=== PATIENT | male | born 1975 | race Caucasian/White ===

== ENCOUNTER 2016-04-11 10:05 | Inpatient (IN) | payer OTHER, MEDICARE ==
[2016-04-11] VITALS (11 sets, daily range): BP systolic 116–157; BP diastolic 69–86; PULSE 62–90; RESP 18–20; TEMP 97.8; O2SAT 98–100
[~2016-04-11] VITALS: Ht 188 cm; Wt 84.8 kg
[~2016-04-11 10:05] MED LIST: ASPI325T PO; LITH1TAB3 PO; OMEP20TA PO; PROC10TA PO; QUET1TAB66 PO
--- NOTE | 2016-04-11 10:37 | PD ---
HPI Chief Complaint: altered mental status Time Seen by Provider: 10:31 Travel History International Travel<30 days: No Contact w/Intl Traveler<30days: No History of Present Illness HPI This is a 40-year-old male with a history of bipolar disorder who is brought in under a Mann act having been found by police stumbling around, looking in leaves for his things, hallucinating and not providing much meaningful history. To them he denied using any substances. To me he says he needs to stop taking Ativan and Depakote. He says it's 1997 and Fernie is the president. He doesn't know where he is. PFSH Past Medical History Bipolar Disorder: Yes Depression: Yes Diabetes: No Diminished Hearing: No Past Surgical History Tonsillectomy: Yes Social History Alcohol Use: Yes Tobacco Use: Yes (2 PPD) Substance Use: Yes Allergies-Medications (Allergen,Severity, Reaction): Coded Allergies: Seroquel (Unverified Allergy, Severe, anaphalaxis, 08/30/13) Reported Meds & Prescriptions Reported Meds & Active Scripts Active Reported Seroquel (Quetiapine Fumarate) 300 Mg Tab 300 Mg PO HS Prochlorperazine Maleate 10 Mg Tab 10 Mg PO NEEDED Omeprazole 20 Mg Tab 20 Mg PO BID Lithobid ([place] Carbonate) 300 Mg Tab 600 Mg PO HS Lithobid ([place] Carbonate) 300 Mg Tab 300 Mg PO DAILY Aspirin 325 Mg Tab 325 Mg PO DAILY Review of Systems ROS Limitations: Altered Mental Status Physical Exam Narrative GENERAL:Well appearing, no acute distress SKIN: Warm and dry. HEAD: Atraumatic. Normocephalic. EYES: Pupils dilated equal and reactive. No injection or drainage. ENT: Moist mucous membranes NECK: Trachea midline. CARDIOVASCULAR: Regular rate and rhythm. No murmur appreciated. RESPIRATORY: Sonorous respirations with some tachypnea, clear breath sounds bilaterally. GASTROINTESTINAL: Abdomen soft, non-tender, nondistended. MUSCULOSKELETAL: No obvious deformities. NEUROLOGICAL: Oriented to person. No obvious cranial nerve deficits. Moving all extremities. PSYCHIATRIC: Poor insight and judgment. Data Data Last Documented VS Vital Signs Date Time Temp Pulse Resp B/P Pulse Ox O2 Delivery O2 Flow Rate FiO2 04/11/16 12:12 83 20 116/72 98 Room Air 04/11/16 10:15 97.8 Orders Ammonia (04/11/16 10:34) Complete Blood Count With Diff (04/11/16 10:34) Comprehensive Metabolic Panel (04/11/16 10:34) Drug Screen, Random Urine (04/11/16 10:34) Salicylates (Aspirin) (04/11/16 10:34) Tylenol (Acetaminophen) (04/11/16 10:34) Urinalysis - C+S If Indicated (04/11/16 10:34) Blood Glucose (04/11/16 10:34) Ecg Monitoring (04/11/16 10:34) Iv Access Insert/Monitor (04/11/16 10:34) Oximetry (04/11/16 10:34) Sodium Chloride 0.9% Flush (Ns Flush) (04/11/16 10:45) Alcohol (Ethanol) (04/11/16 10:34) Chest, Single Ap (04/11/16 ) Arterial Blood Gas (Abg) (04/11/16 ) Sodium Bicarbonate 8.4% Inj (Sodium Bica (04/11/16 12:45) Dextrose 5% In [place]... W/Sodium Bicarbon (04/11/16 12:45) Acetylcysteine Inj (Acetadote Inj) (04/11/16 13:00) Acetylcysteine Inj (Acetadote Inj) (04/11/16 13:00) Acetylcysteine Inj (Acetadote Inj) (04/11/16 13:00) Admit Order (Ed Use Only) (04/11/16 13:02) Labs Laboratory Tests Test 04/11/16 04/11/16 04/11/16 11:41 12:09 12:57 White Blood Count 11.6 TH/MM3 Red Blood Count 4.87 MIL/MM3 Hemoglobin 15.9 GM/DL Hematocrit 46.5 % Mean Corpuscular Volume 95.5 FL Mean Corpuscular Hemoglobin 32.6 PG Mean Corpuscular Hemoglobin 34.2 % Concent Red Cell Distribution Width 15.4 % Platelet Count 266 TH/MM3 Mean Platelet Volume 7.4 FL Neutrophils (%) (Auto) 72.1 % Lymphocytes (%) (Auto) 20.6 % Monocytes (%) (Auto) 6.7 % Eosinophils (%) (Auto) 0.1 % Basophils (%) (Auto) 0.5 % Neutrophils # (Auto) 8.4 TH/MM3 Lymphocytes # (Auto) 2.4 TH/MM3 Monocytes # (Auto) 0.8 TH/MM3 Eosinophils # (Auto) 0.0 TH/MM3 Basophils # (Auto) 0.1 TH/MM3 CBC Comment DIFF FINAL Differential Comment Sodium Level 145 MEQ/L Potassium Level 4.0 MEQ/L Chloride Level 122 MEQ/L Carbon Dioxide Level 15.3 MEQ/L Anion Gap 8 MEQ/L Blood Urea Nitrogen 29 MG/DL Creatinine 1.73 MG/DL Estimat Glomerular Filtration 44 ML/MIN Rate Random Glucose 89 MG/DL Calcium Level 8.5 MG/DL Total Bilirubin 0.4 MG/DL Aspartate Amino Transf 188 U/L (AST/SGOT) Alanine Aminotransferase 200 U/L (ALT/SGPT) Alkaline Phosphatase 88 U/L Ammonia 15 MCMOL/L Total Protein 7.4 GM/DL Albumin 4.1 GM/DL Salicylates Level 60.8 MG/DL Acetaminophen Level LESS THAN 2.0 MCG/ML Ethyl Alcohol Level LESS THAN 3 MG/DL Urine Color YELLOW Urine Turbidity CLEAR Urine pH 5.0 Urine Specific [place] 1.020 Urine Protein TRACE mg/dL Urine Glucose (UA) NEG mg/dL Urine Ketones 10 mg/dL Urine Occult Blood MOD Urine Nitrite NEG Urine Bilirubin NEG Urine Urobilinogen LESS THAN 2.0 MG/DL Urine Leukocyte Esterase NEG Urine RBC 10 /hpf Urine WBC 1 /hpf Urine Amorphous Sediment RARE Urine Hyaline Casts 26 /lpf Urine Mucus FEW /lpf Microscopic Urinalysis Comment CATH-CULT NOT IND Urine Opiates Screen NEG Urine Barbiturates Screen NEG Urine Amphetamines Screen NEG Urine Benzodiazepines Screen NEG Urine Cocaine Screen NEG Urine Cannabinoids Screen NEG Blood Gas Puncture Site RT RADIAL Blood Gas Patient Temperature 98.6 Blood Gas HCO3 8 mmol/L Blood Gas Base Excess -16.1 mmol/L Blood Gas Oxygen Saturation 95 % Arterial Blood pH 7.43 Arterial Blood Partial 12 mmHg Pressure CO2 Arterial Blood Partial 123 mmHG Pressure O2 Arterial Blood Oxygen Content 21.7 Vol % Arterial Blood 1.1 % Carboxyhemoglobin Arterial Blood Methemoglobin 2.1 % Blood Gas Hemoglobin 16.1 G/DL Oxygen Delivery Device ROOM AIR Blood Gas Inspired Oxygen 21 % MDM Medical Decision Making Medical Screen Exam Complete: Yes Emergency Medical Condition: Yes Interpretation(s) Afebrile, no tachycardia, hypertensive Mild leukocytosis Bicarbonate is 15 Creatinine is 1.7 Mild transaminitis Salicylate 60 Drug screen is negative Acetaminophen is negative Alcohol is negative ABG: Respiratory alkalosis and metabolic acidosis Differential Diagnosis Alcohol intoxication, substance intoxication, intracranial hemorrhage, drug overdose Narrative Course This is a 40-year-old male who presents to the emergency department with altered mental status under a Mann act for bizarre behavior. He does have a history of bipolar disorder. He was placed on a monitor and an IV was established. He was observed to be tachypneic and somewhat short of breath. Labs were obtained which demonstrate a salicylate level of 60 consistent with salicylate toxicity. Additionally he was found to have a metabolic acidosis with a concurrent respiratory alkalosis. Creatinine is 1.7. PH was normal. CT of the head is negative for intracranial process. I spoke to poison control. Patient was started on sodium bicarbonate. He will be admitted to the intensive care unit for further evaluation. I don't think he requires dialysis at this time but certainly if his symptoms worsen he may require dialysis. Poison control also recommended that we initiate N-acetylcysteine given the patient's transaminitis. I ordered this and we will follow a repeat Tylenol level in 4 hours. Critical Care Narrative Aggregate critical care time was 60 minutes. Time to perform other separately billable procedures was not included in the critical care time. My time did not include minutes spent treating any other patients simultaneously or on activities that did not directly contribute to the patient's treatment. The services I provided to this patient were to treat and/or prevent clinically significant deterioration that could result in: Disability, I provided critical care services requiring my management, as noted below: Chart data review, documentation time, medication orders and management, vital sign assessments/reviewing monitor data, ordering and reviewing lab tests, ordering and interpreting/reviewing x-rays and diagnostic studies, care of the patient and discussion of the patient with the admitting physicians. Physician Communication Physician Communication Discussed with Dr. Catalan Diagnosis Primary Impression: Salicylate poisoning Qualified Code: T39.094A - Salicylate poisoning, undetermined intent, initial encounter Admitting Information Admitting Physician Requests: it Jackeline Leon MD Apr 11, 2016 10:37
--- NOTE | 2016-04-11 11:13 | RADRPT ---
EXAM DATE/TIME: 04/11/2016 10:44 [facility] COMPARISON: No previous studies available for comparison. INDICATIONS : Short of breath MEDICAL HISTORY : None. SURGICAL HISTORY : None. ENCOUNTER: Initial ACUITY: 1 day PAIN SCORE: Non-responsive. LOCATION: Bilateral chest FINDINGS: AP views of the chest demonstrate a normal-sized cardiac silhouette. There are multiple EKG lines ove rlying the patient. No effusion, consolidation, or pneumothorax is identified. Bones and soft tissues demonstrate no acute finding. CONCLUSION: No acute cardiopulmonary abnormality is identified. Rocky Davis MD on April 11, 2016 at 11:10 Board Certified Radiologist. This report was verified electronically.
[2016-04-11 11:58] LABS: AUTOMATED NEUTROPHIL # 8.4 TH/MM3 (1.8-7.7); BASOPHIL # 0.1 TH/MM3 (0-0.2); BASOPHIL % 0.5 % (0.0-2.0); EOSINOPHIL % 0.1 % (0.0-4.0); HEMATOCRIT 46.5 % (39.0-51.0); HEMO FLAGS DIFF FINAL; LYMPH % 20.6 % (9.0-44.0); LYMPHOCYTE # 2.4 TH/MM3 (1.0-4.8); MEAN CELL VOLUME 95.5 FL (80.0-100.0); MEAN CORPUSCULAR HEMOGLOBIN 32.6 PG (27.0-34.0); MEAN CORPUSCULAR HGB CONC 34.2 % (32.0-36.0); MONO % 6.7 % (0.0-8.0); NEUT % 72.1 % (16.0-70.0); PLATELET COUNT 266 TH/MM3 (150-450); RED BLOOD COUNT 4.87 MIL/MM3 (4.50-5.90); RED CELL DISTRIBUTION WIDTH 15.4 % (11.6-17.2); WHITE BLOOD COUNT 11.6 TH/MM3 (4.0-11.0)
[2016-04-11 12:24] LABS: ANION GAP 8 MEQ/L (5-15)
[2016-04-11 12:27] LABS: ALKALINE PHOSPHATASE 88 U/L (45-117); ALT (GPT) 200 U/L (12-78); AST (GOT) 188 U/L (15-37); BICARBONATE 15.3 MEQ/L (21.0-32.0); BLOOD UREA NITROGEN 29 MG/DL (7-18); CHLORIDE 122 MEQ/L (98-107); GLOMERULAR FILTRATION RATE 44 ML/MIN (>89); SODIUM (NA) 145 MEQ/L (136-145); TOTAL BILIRUBIN ADULT 0.4 MG/DL (0.2-1.0)
[2016-04-11 12:28] LABS: ACETAMINOPHEN LESS THAN 2.0 MCG/ML (10.0-30.0)
[2016-04-11 12:38] LABS: BLOOD, URINE MOD (NEG); GLUCOSE,URINE NEG (NEG); HYALINE CAST, URINE 26 /lpf (RARE); KETONE, URINE 10 mg/dL (NEG); MUCUS URINE FEW /lpf (OCC); NITRITE,URINE NEG (NEG); URINE COLOR YELLOW (YELLW/STRAW)
[2016-04-11 12:40] LABS: AMPHETAMINE, URINE NEG (NEG); BARBITURATES, URINE NEG (NEG); COCAINE, URINE NEG (NEG)
[2016-04-11 12:41] LABS: COMMENT (UR) CATH-CULT NOT IND; CULTURE IF INDICATED CATH CULTURE NOT IND
[2016-04-11] MEDS ORDERED: SODIUM BICARBONATE 8.4% INJ 100 MEQ in DEXTROSE 5% IN WATE 1000ML INJ 1,000 ML IV SCH ×2 (12:45)
[2016-04-11] MEDS ORDERED: SODIUM BICARBONATE 8.4% INJ 50 MEQ/50 ML SYR IV PUSH ONE (12:45)
[2016-04-11] MEDS ORDERED: ACETYLCYSTEINE IV ONE ×6 (13:00)
[2016-04-11] MEDS ORDERED: DEXTROSE 5% IV ONE ×6 (13:00)
[2016-04-11] MEDS ORDERED: WATER IV ONE ×2 (13:00)
[2016-04-11] MEDS ORDERED: WATE IV ONE ×4 (13:00)
[2016-04-11 13:07] LABS: BLOOD GAS BASE EXCESS -16.1 mmol/L (-2-2); BLOOD GAS CARBOXYHEMOGLOBIN 1.1 % (0-4); BLOOD GAS HCO3 8 mmol/L (22-26); BLOOD GAS METHEMOGLOBIN 2.1 % (0-2); BLOOD GAS O2 HGB SATURATION 95 % (90-100); BLOOD GAS OXYGEN CONTENT 21.7 Vol % (12.0-20.0); BLOOD GAS PCO2 12 mmHg (38-42); BLOOD GAS PO2 123 mmHG (61-120); BLOOD GAS TOTAL HGB 16.1 G/DL (12.0-16.0); CRITICAL VALUE YES; DRAW SITE RT RADIAL; FIO2 21 %; NUMBER OF ARTERIAL PUNCTURES 1; OXYGEN DEVICE ROOM AIR; STAT YES; TEMP CORR TO 98.6; ULNAR PULSE PRESENT
[2016-04-11] MEDS ORDERED: MISCELLANEOUS NURSING INFORMATION XX SCH (13:30)
[2016-04-11] MEDS ORDERED: RESP: ALBUTEROL 2.5 MG/IPRATROPIUM 0.5 MG NEB (PRN) INH (13:30)
[2016-04-11] MEDS ORDERED: CHLORHEXIDINE GLUCONATE 2 % 1 PACK (2 CLOTHS) TOP PRN (13:30)
[2016-04-11] MEDS ORDERED: SODIUM BICARBONATE 8.4% INJ 50 MEQ/50 ML SYR ONE ×2 (13:37→13:41)
[2016-04-11 13:55] LABS: INTERNATIONAL NORMALIZED RATIO 1.1 RATIO; PROTHROMBIN TIME - PATIENT 12.4 SEC (9.8-11.6)
--- NOTE | 2016-04-11 15:22 | MH ---
cc: AKHIL HART M.D. DATE OF ADMISSION: 04/11/2016 HISTORY OF PRESENT ILLNESS: The patient is a 40-year-old male with past medical history of bipolar disorder on lithium and Seroquel at home. He presented to the [facility] Emergency room under the Mann Act after the police found him stumbling around and looking in leaves for his things. In addition, the patient was confused and hallucinating and not providing any meaningful history. His laboratory data showed acute kidney injury with creatinine level of 1.73 and a potassium of 4.0. His Salicylate level was 60.8 and Tylenol level was less than 2.0. His urine drug screen is negative. Chest x-ray in the emergency department showed no acute cardiopulmonary disease identified. In the emergency department, the patient was given 2 ampules of sodium bicarbonate IV push and is about to be placed on a bicarbonate drip. His ABG showed a pH of 7.43, CO2 12, pAO2 of 123, a bicarb of 8 and saturation of 95% on room air. The rest of his history is limited as the patient is a poor historian. PAST MEDICAL HISTORY: Past medical history significant for: 1. Bipolar disorder. 2. Depression. PAST SURGICAL HISTORY: Previous tonsillectomy SOCIAL HISTORY: The patient has a history of tobacco and alcohol use per records. ALLERGIES: SEROQUEL. REPORTED MEDICATIONS: 1. Omeprazole. 2. [place]. 3. Aspirin. FAMILY HISTORY: Noncontributory. REVIEW OF SYSTEMS: Unobtainable. PHYSICAL EXAMINATION: GENERAL: A 40-year-old male lying in bed in no acute respiratory distress. Able to protect his airway. VITAL SIGNS: Afebrile, pulse of 84, blood pressure 116/69, saturation 100% on three liters oxygen. HEAD, EYES, EARS, NOSE, THROAT: Normocephalic and atraumatic. Pupils equal, round and reactive to light and accommodation. Extraocular muscles intact. Conjunctivae are pink. Nonicteric sclerae. Dry mucous membranes. NECK: The neck is supple. No jugular venous distention, adenopathy or thyromegaly. Trachea in the midline. CARDIOVASCULAR: Regular rate and rhythm. Normal S1 and S2. No murmurs, rubs or gallops noted. PULMONARY: Bilateral equal air entry. No rales or wheezing. ABDOMEN: The abdomen is soft, nontender and no distention. Positive bowel sounds. EXTREMITIES: No cyanosis, clubbing or edema. NEUROLOGIC: Awake, alert and able to protect his airways at the present time. No focal sensory deficit. LABORATORY DATA: WBCs of 11.6, hemoglobin 15.9, hematocrit 46, platelet count of 266,000. Sodium 145, potassium 4, chloride 122, CO2 15, BUN 29, creatinine 1.73, glucose of 89, total bilirubin 0.4, AST 188, ALT 200, alkaline phosphatase 88, ammonia level 15, albumin 4.1. Urine drug screen negative for barbiturates, benzodiazepines, amphetamines. Salicylate level 60.8. Tylenol level less than 2. RADIOGRAPHIC STUDIES: Chest x-ray in the emergency department showed no acute cardiopulmonary disease identified. IMPRESSION: 1. Altered mental status. 2. Aspirin toxicity. 3. Acute kidney injury. 4. Elevated liver function tests. 5. Drug overdose. 6. History of bipolar disorder. RECOMMENDATIONS: 1. Monitor neuro status closely and avoid any sedatives. His urine drug screen negative for benzodiazepines, opiates and amphetamines. 2. Oxygen p.r.n. to maintain sats above 92%. 3. Bronchodilators on a p.r.n. basis. 4. The patient is able to protect his airways at the present time. If there is any changes in clinical status, will proceed with intubation for airway protection if needed. 5. Monitor heart rate and blood pressure closely and maintain MAP greater 65 mmHg. obtain a baseline lactic acid level. 6. Monitor renal function, intakes and outputs and avoid nephrotoxins. Insert a Lind. 7. Patient was given 2 ampules of sodium bicarb IV push and will place on D5W with 3 ampules of bicarb at 200 mL/hour. 10. Serial aspirin level checks q. 4 hours. In addition we will repeat Tylenol level. 11. If there is any worsening in renal function, metabolic acidosis or an increase in the salicylate level, will proceed with dialysis. case was discussed with Dr. Orona from the nephrology service. 12. Continue with a urinary alkalinization as stated above. 13. Keep n.p.o. for now. 14. Monitor liver function tests and will check ultrasound of the liver. 15. Patient was started on Mucomyst for possible Tylenol toxicity. His initial Tylenol level was less than 2.0. Will continue with Mucomyst for now until we repeat level in 4 hours. If on repeat, the level is less than 2, will stop Mucomyst at that time. 16. Monitor CBC for signs of infection, which include fever and WBCs. Chest x-ray in the emergency department showed no acute cardiopulmonary disease identified. 17. Sliding scale insulin if needed for glycemic control. 18. Will check a baseline lithium level and consult psychiatry service given underlying history of bipolar disorder and depression. 19. GI prophylaxis with Protonix 40 milligrams daily and DVT prophylaxis with SCDs for now. Further recommendations will be based on the hospital course. CRITICAL CARE TIME: Sixty (60) minutes excluding procedures. MD YAA Arceo/BRIDGER /2:11 PM /3:07 PM JORGE
--- NOTE | 2016-04-11 15:39 | RADRPT ---
EXAM DATE/TIME: 04/11/2016 15:00 [facility] COMPARISON: No previous studies available for comparison. INDICATIONS : Increased lab values. MEDICAL HISTORY : Hallucinations. Bipolar disorder. Substance and alcohol use. Asthma. SURGICAL HISTORY : Tonsillectomy. ENCOUNTER: Initial ACUITY: 1 day PAIN SCORE: Nonresponsive. LOCATION: Bilateral upper quadrant MEASUREMENTS: LIVER: 18.4 cm length COMMON DUCT: 5 mm RIGHT KIDNEY: 12.1 x 5.2 x 5.9 cm SPLEEN: 12.7 cm length FINDINGS: LIVER: Normal echotexture without focal lesion or ductal dilatation. The liver is upper limits of normal fo r size. COMMON DUCT: No intraluminal mass or stone visualized. GALLBLADDER: Contains no stones, demonstrates no wall thickening or pericholecystic fluid. PANCREAS: The visualized portions are within normal limits. RIGHT KIDNEY: No hydronephrosis, stone or mass. The right kidney appears slightly increased in echogenicity. SPLEEN: No focal lesion. The spleen is upper limits of normal for size. CONCLUSION: Slight increase in echogenicity the right kidney which can be seen with medical renal disease. Rocky Zamarripa MD on April 11, 2016 at 15:35 Board Certified Radiologist. This report was verified electronically.
--- NOTE | 2016-04-11 16:12 | RADRPT ---
EXAM DATE/TIME: 04/11/2016 15:54 [facility] COMPARISON: No previous studies available for comparison. INDICATIONS : Altered mental status. RADIATION DOSE: 40.28 CTDIvol (mGy) MEDICAL HISTORY : None SURGICAL HISTORY : Tonsillectomy. ENCOUNTER: Initial ACUITY: 1 day PAIN SCALE: 0/10 LOCATION: cranial TECHNIQUE: Multiple contiguous axial images were obtained of the head. Using automated exposure control and adj ustment of the mA and/or kV according to patient size, radiation dose was kept as low as reasonably a chievable to obtain optimal diagnostic quality images. FINDINGS: CEREBRUM: The ventricles are normal for age. No evidence of midline shift, mass lesion, hemorrhage or acute in farction. No extra-axial fluid collections are seen. POSTERIOR FOSSA: The cerebellum and brainstem are intact. The 4th ventricle is midline. The cerebellopontine angle i s unremarkable. EXTRACRANIAL: The visualized portion of the orbits is intact. SKULL: The calvaria is intact. No evidence of skull fracture. CONCLUSION: Normal examination. Rocky Zamarripa MD on April 11, 2016 at 16:10 Board Certified Radiologist. This report was verified electronically.
[2016-04-11] MEDS ORDERED: CHLORHEXIDINE GLUCONATE 2 % 1 PACK (2 CLOTHS)(extra cloths) TOP PRN (18:15)
[2016-04-11] MEDS: SODIUM CHLORIDE 0.9% FLUSH 5 ML FLUSH IVF PRN (19:23)
[2016-04-11] MEDS: SODIUM BICARBONATE 8.4% INJ 150 MEQ in DEXTROSE 5% IN WATE 1000ML INJ 1,000 ML IV SCH ×2 (19:23)
[2016-04-11 20:03] LABS: ACETAMINOPHEN LESS THAN 2.0 MCG/ML (10.0-30.0); ALKALINE PHOSPHATASE 73 U/L (45-117); ALT (GPT) 156 U/L (12-78); ANION GAP 11 MEQ/L (5-15); AST (GOT) 133 U/L (15-37); BICARBONATE 17.4 MEQ/L (21.0-32.0); BLOOD UREA NITROGEN 23 MG/DL (7-18); CHLORIDE 120 MEQ/L (98-107); GLOMERULAR FILTRATION RATE 56 ML/MIN (>89); SODIUM (NA) 148 MEQ/L (136-145); TOTAL BILIRUBIN ADULT 0.2 MG/DL (0.2-1.0)
[2016-04-11 20:07] LABS: POTASSIUM 2.9 MEQ/L (3.5-5.1)
[2016-04-11] MEDS ORDERED: POTASSIUM CHLORIDE 20 MEQ CONTROLLED RELEASE TAB PO SCH (21:30)
[2016-04-11] MEDS: POTASSIUM CHLOR 20 MEQ PREMIX 100 ML IV SCH (22:00)
[2016-04-12] VITALS (8 sets, daily range): BP systolic 113; BP diastolic 71; PULSE 55–70; RESP 14; TEMP 98.4; O2SAT 99–100
[2016-04-12] MEDS: SODIUM BICARBONATE 8.4% INJ 150 MEQ in DEXTROSE 5% IN WATE 1000ML INJ 1,000 ML IV SCH ×2 (00:12)
[2016-04-12] MEDS: POTASSIUM CHLOR 20 MEQ PREMIX 100 ML IV SCH ×3 (00:12→05:14)
[2016-04-12] MEDS ORDERED: CHLORHEXIDINE GLUCONATE 2 % 1 PACK (2 CLOTHS) TOP SCH (04:00)
[2016-04-12] MEDS ORDERED: CHLORHEXIDINE GLUCONATE 2 % 1 PACK (2 CLOTHS)(taper/protocol) TOP SCH (04:00)
--- NOTE | 2016-04-12 06:39 | MB ---
cc: MABLE MCKEON MD DATE OF CONSULTATION 04/11/2016 REASON FOR CONSULTATION Acute renal failure with salicylate toxicity. HISTORY OF PRESENT ILLNESS This is a 40-year-old male who was admitted today under a Mann Act with a history of bipolar disorder on lithium. The patient was Mann Acted after he was found stumbling around and looking for leaves outside. The patient was apparently confused and hallucinating. He was admitted here. He was found to have acute kidney injury with a creatinine level of 1.7. His previous creatinine was 1.1 in 2010. He was also found to have aspirin level of 60.8 and it was suspected that he had salicylate toxicity secondary to aspirin overdose. His urine drug screen was otherwise negative. His chest x-ray was negative otherwise and his electrolytes revealed signs of acidosis with a serum bicarbonate level of 15. A blood gas revealed a pH of 7.43. The patient was admitted and Toxicology was notified through the emergency room and they had suggested a bicarbonate drip. There is a question if dialysis would be of any benefit for this patient and Nephrology was consulted. At this point the patient is resting in bed. He is somewhat confused; however, has no apparent signs of distress at this point. REVIEW OF SYSTEMS Unobtainable. The patient is lethargic. PAST MEDICAL HISTORY Bipolar disorder. Depression. PAST SURGICAL HISTORY Tonsillectomy. SOCIAL HISTORY History of tobacco and alcohol use, unknown drug use. MEDICATIONS AT HOME 1. Omeprazole. 2. [place]. 3. Aspirin. FAMILY HISTORY Noncontributory. REVIEW OF SYSTEMS Unobtainable. PHYSICAL EXAMINATION VITAL SIGNS: At time of evaluation, temperature 97.8, pulse 78, blood pressure 123/81, pulse ox 99% on 3 liters nasal cannula. GENERAL: The patient lying in bed in no apparent distress, somewhat lethargic. HEENT/NECK: Soft supple. No lymphadenopathy. CARDIAC: Regular rate and rhythm. No murmurs, rubs, gallops. PULMONARY: Lungs clear to auscultation bilaterally. ABDOMEN: Soft, nontender, nondistended. EXTREMITIES: No edema. LABORATORY FINDINGS White count 11.6, hemoglobin 15.9, hematocrit 46.5 with platelet count of 266. Sodium 145, potassium 4.0, chloride 122, bicarb 15.3, BUN 29, creatinine 1.7 with a glucose of 89. Urinalysis with 10 ketones, moderate blood, 10 RBCs, one WBC, 26 hyaline casts. Toxicology with salicylate level of 60.8. ASSESSMENT AND PLAN 1. Salicylate toxicity. The patient presents with a salicylate level of 60.8. He apparently had aspirin overdose. The therapeutic range for treatment with aspirin is usually a range between 10 and 30 and recommendations for dialysis include levels greater than 80-90. At this point the patient has been started on a bicarbonate drip with D5W plus 150 mEq of sodium bicarbonate; this is running at 200 cc/hour. Agree with treatment with bicarbonate infusion to alkalize the patient and further prone excretion of salicylate. There is no absolute indication for hemodialysis at this point. The patient is making urine. He has made approximately 700 cc of urine output since his time in the ER here. Continue with bicarbonate infusion and continue to closely monitor. Also continue to follow salicylate levels. Should levels drift up to levels greater than 80-90, may consider for Vascath placement and dialysis. However, at this point with bicarbonate infusion, should the patient have excretion of salicylate through his urine, continue to closely monitor. 2. Acidosis. The patient presents with acidosis secondary to ingestion of salicylate. He is on bicarbonate infusion, bicarbonate level of 15 at this point. Continue to closely monitor. 3. Bipolar disorder. Continue to monitor at this point. Consider Psychiatry evaluation when stable. 4. Acute kidney injury. The patient has a creatinine here of 1.7. It is unknown what his baseline creatinine is; however, he had a creatinine of 1.14 in 2010. Continue with IV fluids with bicarbonate at this point. If there is no further improvement in renal function, may consider further workup. However, continue to monitor at this point and the patient is making urine at this time. MD PAULO RodriguezP/INGRID /5:32 PM /6:27 AM [id number]
[2016-04-12 07:57] LABS: AUTOMATED NEUTROPHIL # 3.5 TH/MM3 (1.8-7.7); BASOPHIL % 0.5 % (0.0-2.0); EOSINOPHIL # 0.1 TH/MM3 (0-0.4); HEMATOCRIT 40.6 % (39.0-51.0); HEMO FLAGS DIFF FINAL; LYMPH % 38.4 % (9.0-44.0); LYMPHOCYTE # 2.7 TH/MM3 (1.0-4.8); MEAN CELL VOLUME 96.1 FL (80.0-100.0); MEAN CORPUSCULAR HEMOGLOBIN 32.7 PG (27.0-34.0); MONO % 10.3 % (0.0-8.0); NEUT % 49.8 % (16.0-70.0); PLATELET COUNT 185 TH/MM3 (150-450); RED BLOOD COUNT 4.22 MIL/MM3 (4.50-5.90); RED CELL DISTRIBUTION WIDTH 15.4 % (11.6-17.2)
[2016-04-12 08:06] LABS: INTERNATIONAL NORMALIZED RATIO 1.3 RATIO; PROTHROMBIN TIME - PATIENT 14.7 SEC (9.8-11.6)
[2016-04-12 08:39] LABS: ALT (GPT) 129 U/L (12-78); AST (GOT) 117 U/L (15-37); BICARBONATE 19.4 MEQ/L (21.0-32.0); BLOOD UREA NITROGEN 15 MG/DL (7-18); CHLORIDE 118 MEQ/L (98-107); GLOMERULAR FILTRATION RATE 87 ML/MIN (>89); POTASSIUM 3.6 MEQ/L (3.5-5.1); SODIUM (NA) 145 MEQ/L (136-145)
[2016-04-12 08:40] LABS: ANION GAP 8 MEQ/L (5-15)
[2016-04-12 08:42] LABS: ALKALINE PHOSPHATASE 65 U/L (45-117); TOTAL BILIRUBIN ADULT 0.3 MG/DL (0.2-1.0)
[2016-04-12] MEDS: PANTOPRAZOLE SODIUM 40 MG VIAL IV SCH (09:00)
--- NOTE | 2016-04-12 10:17 | HHI.CCPN ---
Subjective Remarks/Hospital Course The patient is a 40-year-old male with past medical history of bipolar disorder on lithium and Seroquel at home. He presented to the [facility] Emergency room under the Mann Act after the police found him stumbling around and looking in leaves for his things. In addition, the patient was confused and hallucinating and not providing any meaningful history. His laboratory data showed acute kidney injury with creatinine level of 1.73 and a potassium of 4.0. His Salicylate level was 60.8 and Tylenol level was less than 2.0. His urine drug screen is negative. Chest x-ray in the emergency department showed no acute cardiopulmonary disease identified. In the emergency department, the patient was given 2 ampules of sodium bicarbonate IV push and is about to be placed on a bicarbonate drip. His ABG showed a pH of 7.43, CO2 12, pAO2 of 123, a bicarb of 8 and saturation of 95% on room air. The rest of his history is limited as the patient is a poor historian. SUBJ 04/12: Pt is alert oriented today, psych consult pending. Salicylate level was 61 yesterday, down to 23 today, remains on bicarb drip. Acute kidney failure has resolved Objective Vital Signs Date Time Temp Pulse Resp B/P Pulse Ox O2 Delivery O2 Flow Rate FiO2 04/12/16 06:00 55 04/11/16 19:32 100 Nasal Cannula 2.00 04/11/16 17:26 18 123/79 04/11/16 10:15 97.8 Intake and Output 04/11/16 04/11/16 04/12/16 08:00 16:00 00:00 Intake Total 3741 ml Output Total 2200 ml Balance 1541 ml Result Diagram: 04/12/16 0741 04/12/16 0735 Other Results Laboratory Tests Test 04/11/16 12:57 Blood Gas Puncture Site RT RADIAL Blood Gas Patient Temperature 98.6 Blood Gas HCO3 8 mmol/L (22-26) Blood Gas Base Excess -16.1 mmol/L (-2-2) Blood Gas Oxygen Saturation 95 % (90-100) Arterial Blood pH 7.43 (7.380-7.420) Arterial Blood Partial 12 mmHg (38-42) Pressure CO2 Arterial Blood Partial 123 mmHG Pressure O2 (61-120) Arterial Blood Oxygen Content 21.7 Vol % (12.0-20.0) Arterial Blood 1.1 % (0-4) Carboxyhemoglobin Arterial Blood Methemoglobin 2.1 % (0-2) Blood Gas Hemoglobin 16.1 G/DL (12.0-16.0) Oxygen Delivery Device ROOM AIR Blood Gas Inspired Oxygen 21 % Objective Remarks PHYSICAL EXAMINATION: GENERAL: A 40-year-old male lying in bed in no acute respiratory distress. HEAD, EYES, EARS, NOSE, THROAT: Normocephalic and atraumatic. NATHALIE Conjunctivae are pink. Nonicteric sclerae. Dry mucous membranes. NECK: The neck is supple.Trachea in the midline. CARDIOVASCULAR: Regular rate and rhythm. Normal S1 and S2. No murmurs, rubs or gallops noted. PULMONARY: Bilateral equal air entry. No rales or wheezing. ABDOMEN: The abdomen is soft, nontender and no distention. Positive bowel sounds. EXTREMITIES: No cyanosis, clubbing or edema. NEUROLOGIC: Awake, alert and able to protect his airways at the present time. No focal deficit. Urinary Catheter: Yes Assessment to: Continue A/P Assessment and Plan IMPRESSION: 1. Altered mental status. 2. Aspirin toxicity. 3. Acute kidney injury. 4. Elevated liver function tests. 5. Drug overdose. 6. History of bipolar disorder. RECOMMENDATIONS: 1. Monitor neuro status closely and avoid any sedatives. His urine drug screen negative for benzodiazepines, opiates and amphetamines. Psych consult pending 2. Oxygen p.r.n. to maintain sats above 92%. 3. Bronchodilators on a p.r.n. basis. 4. The patient is able to protect his airways at the present time. 5. Monitor heart rate and blood pressure closely and maintain MAP greater 65 mmHg. obtain a baseline lactic acid level. 6. Monitor renal function, intakes and outputs and avoid nephrotoxins. Insert a Lind. 7. Patient was given 2 ampules of sodium bicarb IV push and continue D5W with 3 ampules of bicarb at 200 mL/hour. 10. Serial aspirin level checks q. 4 hours. 11. If there is any worsening in renal function, metabolic acidosis or an increase in the salicylate level, will proceed with dialysis. 12. Continue with a urinary alkalinization as stated above. 13. Start regular diet 14. Monitor liver function tests and will check ultrasound of the liver. 15. Patient was started on Mucomyst for possible Tylenol toxicity. His initial Tylenol level was less than 2.0. Will stop Mucomyst. 16. Monitor CBC for signs of infection, which include fever and WBCs. Chest x- ray in the emergency department showed no acute cardiopulmonary disease 17. Sliding scale insulin if needed for glycemic control. 18. Consult psychiatry service given underlying history of bipolar disorder and depression. 19. GI prophylaxis with Protonix 40 milligrams daily and DVT prophylaxis with SCDs for now. David Hidalgo MD Apr 12, 2016 10:17 7. Patient was given 2 ampules of sodium bicarb IV push and will place on D5W with 3 ampules of bicarb at 200 mL/hour. 10. Serial aspirin level checks q. 4 hours. In addition we will repeat Tylenol level. 11. If there is any worsening in renal function, metabolic acidosis or an increase in the salicylate level, will proceed with dialysis. case was discussed with Dr. Orona from the nephrology service. 12. Continue with a urinary alkalinization as stated above. 13. Keep n.p.o. for now. 14. Monitor liver function tests and will check ultrasound of the liver. 15. Patient was started on Mucomyst for possible Tylenol toxicity. His initial Tylenol level was less than 2.0. Will continue with Mucomyst for now until we repeat level in 4 hours. If on repeat, the level is less than 2, will stop Mucomyst at that time. 16. Monitor CBC for signs of infection, which include fever and WBCs. Chest x-ray in the emergency department showed no acute cardiopulmonary disease identified. 17. Sliding scale insulin if needed for glycemic control. 18. Will check a baseline lithium level and consult psychiatry service given underlying history of bipolar disorder and depression. 19. GI prophylaxis with Protonix 40 milligrams daily and DVT prophylaxis with SCDs for now. David Hidalgo MD Apr 12, 2016 10:17
--- NOTE | 2016-04-12 11:21 | HHI.NPPN ---
Subjective History of Present Illness 40 Year old with salicylate overdose Review of Systems General Constitutional: Fatigue Objective Data Data 04/11/16 04/12/16 19:00 07:00 Intake Total 2043 ml 3196 ml Output Total 750 ml 1900 ml Balance 1293 ml 1296 ml Intake Oral 0 ml IV Total 2043 ml 3196 ml Output Urine Total 750 ml 1900 ml # Bowel Movements 0 Vital Signs Date Time Temp Pulse Resp B/P Pulse Ox O2 Delivery O2 Flow Rate FiO2 04/12/16 11:18 100 Nasal Cannula 2.00 04/12/16 06:00 55 04/12/16 04:00 60 04/12/16 02:00 70 04/12/16 00:00 67 04/11/16 22:00 62 04/11/16 20:00 70 04/11/16 19:32 100 Nasal Cannula 2.00 04/11/16 17:26 82 18 123/79 97 04/11/16 17:12 78 123/81 99 Nasal Cannula 3 04/11/16 16:16 77 18 127/81 100 Nasal Cannula 3 04/11/16 15:50 78 18 132/86 98 Nasal Cannula 2 04/11/16 13:20 79 116/69 99 Room Air 04/11/16 12:12 83 20 116/72 98 Room Air -: 04/12/16 0741 04/12/16 0735 Physical Exam General Appearance: Well Developed Neck Neck Exam: Neck Supple Pulmonary Resp Exam: Clear Bilaterally, Breath Sounds Equal Cardiology CV Exam: Regular, Good Perfusion Gastrointestinal/Abdomen GI Exam: Soft, Non-Tender, Bowel Sounds Present Integumentary Skin Exam: Clear Extremeties Extremities Exam: No Edema Assessment/Plan Assessment Summary: MINOO/Acute Renal Failure Problem List: (1) Salicylate poisoning Plan: resolved with conservative approach cr 0.9 Nephrology to sign off Problem Qualifiers (1) Salicylate poisoning: Qualified Code: T39.094D - Salicylate poisoning, undetermined intent, subsequent encounter Nick Trinh MD Apr 12, 2016 11:21
[2016-04-12 11:39] LABS: ACETAMINOPHEN 3.8 MCG/ML (10.0-30.0)
[2016-04-12 11:40] LABS: INDIRECT BILIRUBIN 0.2 MG/DL (0.0-0.8); TOTAL BILIRUBIN ADULT 0.3 MG/DL (0.2-1.0)
[2016-04-12 11:58] LABS: APTT (PATIENT) 33.1 SEC (24.3-30.1); INTERNATIONAL NORMALIZED RATIO 1.3 RATIO; PROTHROMBIN TIME - PATIENT 14.3 SEC (9.8-11.6)
[2016-04-12] MEDS ORDERED: QUEtiapine FUMARATE 100 MG TAB PO SCH (13:30)
--- NOTE | 2016-04-12 13:41 | PD.CONS ---
Provisional Diagnosis Admission Date Apr 11, 2016 at 13:04 [place] I. Bipolar disorder, type I, depressive episode [place] II. Deferred [place] III. Aspirin overdose History of Present Illness Service Psychiatry Consult Requested By Primary Care Physician Unknown HPI The patient is a 40-year-old man, diverse, domiciled alone, [place], 100% service-connected, with psychiatric history of bipolar disorder, multiple psychiatric hospitalizations, previous suicidal attempts, he is receiving outpatient psychiatric care in [place] system, he is on Depakote thousand milligram twice a day and Seroquel 200 mg at bedtime, he doesn't have any significant medical history, who presented to the [facility] Emergency room under the Mann Act after the police found him stumbling around and looking in leaves for his things. As per Er note "In addition, the patient was confused and hallucinating and not providing any meaningful history. His laboratory data showed acute kidney injury with creatinine level of 1.73 and a potassium of 4.0. His Salicylate level was 60.8 and Tylenol level was less than 2.0. His urine drug screen is negative. Chest x-ray in the emergency department showed no acute cardiopulmonary disease identified. In the emergency department , the patient was given 2 ampules of sodium bicarbonate IV push and is about to be placed on a bicarbonate drip. His ABG showed a pH of 7.43, CO2 12, pAO2 of 123, a bicarb of 8 and saturation of 95% on room air". Patient was seen in the ICU today for psychiatric evaluation, no collateral information couldn't be obtained, on psychiatric evaluation patient was found eating, was calm and cooperative, patient explains that he doesn't remember the circumstances around his overdose with aspirin. He says that he knows that he overdosed "but I can' t remember anything, and completely blacked out". He denies the use of alcohol and illicit drug the day of the suicidal attempt, he denies acute stressors or depressive symptoms. He explains that he has been "in a kind of depressed mood in the last weeks"but at the same time he says that he has been stable in his current psychotropic medications and with his psychotherapy. At this moment the patient denies depression, he denies anxiety, he denies suicidal or homicidal ideation, he denies visual and auditory hallucinations, patient is fully oriented 3, no attention deficit, fluctuation of consciousness or gross cognitive impairment observed. As patient is talking with psychiatrist he continues eating, requesting to be discharged back and to continue his psychiatric care as an outpatient. Patient reports 2 or 3 times per month intake or 4-6 beers, he denies the use of illicit drugs. Review of Systems Constitutional: DENIES: Diaphoretic episodes, Fatigue, Fever, Weight gain, Weight loss, Chills, Dizziness, Change in appetite, Night Sweats Endocrine: DENIES: Heat/cold intolerance, Polydipsia, Polyuria, Polyphagia Eyes: DENIES: Blurred vision, Diplopia, Eye inflammation, Eye pain, Vision loss , Photosensitivity, Double Vision Ears, nose, mouth, throat: DENIES: Tinnitus, Hearing loss, Vertigo, Nasal discharge, Oral lesions, Throat pain, Hoarseness, Ear Pain, Running Nose, Epistaxis, Sinus Pain, Toothache, Odynophagia Respiratory: DENIES: Apneas, Cough, Snoring, Wheezing, Hemoptysis, Sputum production, Shortness of breath Cardiovascular: DENIES: Chest pain, Palpitations, Syncope, Dyspnea on Exertion , PND, Lower Extremity Edema, Orthopnea, Claudication Gastrointestinal: DENIES: Abdominal pain, Black stools, Bloody stools, Constipation, Diarrhea, Nausea, Vomiting, Difficulty Swallowing, Anorexia Genitourinary: DENIES: Sexual dysfunction, Urinary frequency, Urinary incontinence, Urgency, Hematuria, Dysuria, Nocturia, Penile Discharge, Testicular Pain, Testicular Swelling Integumentary: DENIES: Abnormal pigmentation, Nail changes, Pruritus, Rash Hematologic/lymphatic: DENIES: Bruising, Lymphadenopathy Immunologic/allergic: DENIES: Eczema, Urticaria Neurologic: DENIES: Abnormal gait, Headache, Localized weakness, Paresthesias, Seizures, Speech Problems, Tremor, Poor Balance Psychiatric: COMPLAINS OF: Depression, DENIES: Anxiety, Confusion, Mood changes, Hallucinations, Agitation, Suicidal Ideation, Homicidal Ideation, Delusions Past Family Social History Coded Allergies: Seroquel (Unverified Allergy, Severe, anaphalaxis, 08/30/13) Reported Medications Quetiapine Fumarate (Seroquel)300 Mg [id number] Mg PO HS 08/14/10 Prochlorperazine Maleate 10 Mg Tab10 Mg PO NEEDED 08/14/10 Omeprazole 20 mg 20 Mg Tab20 Mg PO BID 08/14/10 Dodson Carbonate (Lithobid)300 Mg [id number] Mg PO HS 08/14/10 Dodson Carbonate (Lithobid)300 Mg [id number] Mg PO DAILY 08/14/10 Aspirin (Aspirin 325 mg)325 Mg Isr492 Mg PO DAILY 08/14/10 Current Medications Medications (Trade) Dose Ordered Sig/Kris Route Start Time Stop Time Status Last Admin (NS Flush) 2 ml UNSCH PRN IVF 04/11/16 10:45 04/11/16 19:23 (Protonix Inj) 40 mg DAILY IV 04/12/16 09:00 04/12/16 09:00 Miscellaneous Information 1 Q361D XX 04/11/16 13:30 (Chlorhexidine 2% Cloth) 3 pack Taper DAILY@04 TOP 04/12/16 04:00 04/08/17 03:59 04/12/16 00:12 (Chlorhexidine 2% Cloth) 3 pack UNSCH PRN TOP 04/11/16 13:30 Miscellaneous Information Patient in critical care unit? Ass... Q361D XX 04/11/16 18:15 04/11/16 18:15 (Chlorhexidine 2% Cloth) 3 pack DAILY@04 TOP 04/12/16 04:00 04/16/16 04:01 04/12/16 02:23 (Chlorhexidine 2% Cloth) 3 pack UNSCH PRN TOP 04/11/16 18:15 04/16/16 18:12 (SEROquel) 100 mg BID PO 04/12/16 13:30 UNV Family History He denies Social History Patient was born and raised in [place], he has been living in [place] for 6 years, he is now at [facility], he is 100% service connected with the [employer] system, divorce, no kids, unemployed, his highest level of education is high school,. Physical Exam Vital Signs Vital Signs Date Time Temp Pulse Resp B/P Pulse Ox O2 Delivery O2 Flow Rate FiO2 04/12/16 11:18 100 Nasal Cannula 2.00 04/12/16 06:00 55 04/11/16 17:26 18 123/79 04/11/16 10:15 97.8 I/O 04/11/16 04/11/16 04/12/16 08:00 16:00 00:00 Intake Total 3741 ml Output Total 2200 ml Balance 1541 ml Mental Status Examination Appearance man, age appearing, good hygiene, patient is eating, calm and cooperative Speech: Unremarkable Orientation: x3 Memory: Unremarkable Thought Process: Logical Thought Content: Unremarkable Hallucination Type: None Attention and Concentration: Good Suicidal Ideation: No Previous Suicide Attempts: Yes Homicidal Ideation: No Previous Homicide Attempts: No Insight: Poor Judgement: Poor Affect: Sad Mood: Sad Motor Activity: Normal gait Assessment & Plan Problem List: (1) Bipolar disorder Assessment & Plan: 40-year-old man, psychiatric history of bipolar disorder type I with psychotic features, multiple psychiatric hospitalizations, previous suicide attempts, on active outpatient psychiatric care in [facility] medicated with Depakote 1000 twice a day and Seroquel 200 at bedtime, was brought to the hospital on the Mann act due to overdose with salicylate with suicidal intentions. Admitted in the ICU to follow poisoning control protocol due to aspirin intoxication and acute kidney injury. On psychiatric evaluation patient is calm and cooperative, he denies depressive symptoms, he denies suicidal and homicidal ideation, he denies visual and auditory hallucinations, he denies anxiety, he does not seem to be paranoid, delusional, manic or psychotic. However, patient is unable to elaborate and provide an insightful explanation of the cause of his recent overdose. His toxicology is negative, he denies being using alcohol or illicit drugs. Patient claims that he has being fully compliant with medications and psychiatric recommendation, but due to the lethality of his recent overdose, his tendency to the minimization of his suicidal attempt and depressive symptoms , his previous history of multiple suicide attempts, the lack of collateral information the patient represents a high risk for suicidality and impulsive behavior and needs psychiatric admission for stabilization and safety. The patient can be transferred to the psychiatric reagan once medically clear. hydroponics worker to coordinate discharge planning and to try to get collateral information from family member or outpatient psychiatric. We'll start Seroquel 100 mg twice a day for depressive symptoms of bipolar disorder, will hold Depakote and liver enzymes normalized. Will order Depakote levels. Extensive support, psychoeducation and motivation provided. ICD Code: F31.9 Assessment & Plan Estimated LOS: days Problem Qualifiers (1) Bipolar disorder: Clark Nuñez MD Apr 12, 2016 13:41
[2016-04-13] VITALS: BP 104/64; PULSE 54; RESP 13; TEMP 98.2; O2SAT 100
[2016-04-13 04:00] VITALS: BP 102/58; PULSE 45; RESP 13; TEMP 97.7; O2SAT 100
[2016-04-13 07:32] VITALS: O2SAT 100
[2016-04-13 08:00] VITALS: BP 106/67; PULSE 49; RESP 15; TEMP 98.4; O2SAT 100
[2016-04-13] MEDS: PANTOPRAZOLE SODIUM 40 MG VIAL IV SCH (08:08)
[2016-04-13] MEDS: SODIUM CHLORIDE 0.9% FLUSH 5 ML FLUSH IVF PRN (08:08)
--- NOTE | 2016-04-13 09:30 | HHI.DCPOC ---
Discharge Care Plan Diagnosis: (1) Salicylate poisoning (2) Bipolar disorder Goals to Promote Your Health * To prevent worsening of your condition and complications * To maintain your health at the optimal level Directions to Meet Your Goals Take your medications as prescribed Follow your dietary instruction Follow activity as directed Keep your appointments as scheduled Take your immunizations and boosters as scheduled If your symptoms worsen call your PCP, if no PCP go to Urgent Care Center or Emergency Room Smoking is Dangerous to Your Health. Avoid second hand smoke Call the 24-hour hour crisis hotline for domestic abuse at Gerard Ly MD Apr 13, 2016 09:30
--- NOTE | 2016-04-13 09:35 | HHI.PR ---
Subjective Remarks Follow up overdose, bipolar disorder. Patient has no complaints at this time. Denies nausea/vomiting, chest pain, dyspnea. Objective Vitals Vital Signs Date Time Temp Pulse Resp B/P Pulse Ox O2 Delivery O2 Flow Rate FiO2 04/13/16 07:32 100 21 04/13/16 04:00 97.7 45 13 102/58 100 04/13/16 00:00 98.2 54 13 104/64 100 04/12/16 23:30 99 21 04/12/16 20:58 99 21 04/12/16 20:00 98.4 55 14 113/71 99 04/12/16 11:18 100 Nasal Cannula 2.00 I/O 04/12/16 04/12/16 04/12/16 04/13/16 04/13/16 04/13/16 07:00 15:00 23:00 07:00 15:00 23:00 Intake Total 1498 ml 370 ml 90 ml Output Total 450 ml 1150 ml 100 ml Balance 1048 ml -780 ml -10 ml Intake Oral 0 ml 360 ml 90 ml IV Total 1498 ml 10 ml 0 ml Output Urine Total 450 ml 1150 ml 100 ml # Bowel Movements 0 0 0 Result Diagram: 04/12/16 0741 04/12/16 0735 Imaging Last Impressions Liver Ultrasound 04/11/16 0000 Signed Impressions: Service Date/Time: Monday, April 11, 2016 15:00 - CONCLUSION: Slight increase in echogenicity the right kidney which can be seen with medical renal disease. Rocky Zamarripa MD Head CT 04/11/16 0000 Signed Impressions: Service Date/Time: Monday, April 11, 2016 15:54 - CONCLUSION: Normal examination. Rocky Zamarripa MD Chest X-Ray 04/11/16 0000 Signed Impressions: Service Date/Time: Monday, April 11, 2016 10:44 - CONCLUSION: No acute cardiopulmonary abnormality is identified. Rocky Davis MD Objective Remarks General: No acute distress. Heart: Regular rate and rhythm. No murmur. Lungs: Clear to auscultation bilaterally. No wheezes, rales, or rhonchi. Breathing is nonlabored. Abdomen: Soft, nontender, nondistended. Extremities: No lower extremity edema. Psych: Alert and oriented. Procedures None Urinary Catheter: Yes Assessment to: Remove Vascular Central Line Catheter: No A/P Problem List: (1) Salicylate poisoning ICD Code: T39.091A Status: Acute (2) Bipolar disorder ICD Code: F31.9 Status: Acute (3) Acute kidney injury ICD Code: N17.9 Status: Resolved Assessment and Plan 1. Salicylate poisoning: Patient presented with elevated salicylate level, encephalopathy, acute kidney injury. Medically improved. Salicylate level decreased. 2. Encephalopathy: Resolved. 3. Acute kidney injury: Resolved. 4. Overdose, history of bipolar disorder: Patient admitted under Mann act. Appreciate psychiatry recommendations. Medically clear for transfer to inpatient psychiatry. Discharge Planning Discharge to inpatient psychiatry today. Patient is medically clear. Problem Qualifiers (1) Salicylate poisoning: Qualified Code: T39.094D - Salicylate poisoning, undetermined intent, subsequent encounter (2) Bipolar disorder: Gerard Ly MD Apr 13, 2016 09:35
[2016-04-13 10:00] VITALS: PULSE 64
[2016-04-13 11:00] VITALS: BP 121/75; PULSE 64; RESP 16; TEMP 98.2; O2SAT 100
== END 2016-04-13 11:05 | DRG 917 ==
LOC: NEPE 10:05 → NEDA 13:04 → HIMW 17:30
PROVIDERS: ADMIT Family Medicine; ATTEND Family Medicine
DX: T39.012A Poisoning by aspirin, intentional self-harm, initial encounter (principal); G92 Toxic encephalopathy; N17.9 Acute kidney failure, unspecified; E87.4 Mixed disorder of acid-base balance; F31.9 Bipolar disorder, unspecified; Z91.5 Personal history of self-harm; Y92.9 Unspecified place or not applicable; R79.89 Other specified abnormal findings of blood chemistry; F17.210 Nicotine dependence, cigarettes, uncomplicated
CPT/HCPCS: 36600; 70450; 71010; 76705; 80053; 80076; 80164; 80178; 80307; 80320; 80329; 81001; 81003; 82140; 82805; 83605; 85025; 85610; 85730; 87641; C9113; G0480; G0481; J0132; J3480; J7060; J7070

== ENCOUNTER 2016-04-13 10:00 | Inpatient (IN) | payer OTHER, MEDICARE ==
[2016-04-13] MEDS ORDERED: hydrOXYzine HCL 50 MG TAB PO PRN (13:00)
[2016-04-13] MEDS ORDERED: ACETAMINOPHEN 325 MG TAB PO PRN (13:00)
[2016-04-13] MEDS ORDERED: MAGNESIUM HYDROXIDE SUSP 30 ML CUP PO PRN (13:00)
[2016-04-13] MEDS ORDERED: ALUMINUM/MAGNESIUM/SIMETH 30 ML CUP PO PRN (13:00)
--- NOTE | 2016-04-13 13:54 | HHI.HP ---
Provisional Diagnosis Admission Date Apr 13, 2016 at 10:00 [place] I. Bipolar affective disorder depressed [place] II. Passive-dependent trait [place] III. Please see the LMD's note [place] IV. Moderate stress difficulty coping [place] V. GAF of 45 Certification of Person's Competence To Provide Express and Informed Consent I have personally examined Bull Elder , a person being served at [facility] on, Apr 13, 2016 13:46. Express and informed consent means consent voluntarily given in writing, by a competent person, after sufficient explanation and disclosure of the subject matter involved to enable the person to make a knowing and willful decision without any element of force, fraud, deceit, duress, or other form of constraint or coercion. This person is 18 years of age or older, is not now known to be incompetent to consent to treatment with a guardian advocate, and does not have a health care surrogate or proxy currently making medical treatment decisions. I have found this person to be one of the following: [x] Competent to provide express and informed consent, as defined above, for voluntary admission to this facility and is competent to provide express and informed consent for treatment. He/she has the consistent capacity to make well reasoned, willful, and knowing decisions concerning his or her medical or mental health treatment. The person fully and consistently understands the purpose of the admission for examination/placement and is fully capable of personally exercising all rights assured under [place] Incompetent to provide express and informed consent to voluntary admission, and this is incompetent to provide express and informed consent to treatment. The person must be transferred to involuntary status and a petition for a guardian advocate filed with the Circuit Court. [] Refusing to provide express and informed consent to voluntary admission but is competent to provide express and informed consent for treatment. The person must be discharged or transferred to involuntary status. Form shall be completed within 24 hours of a person's arrival at the receiving facility and filed in the clinical record of each person: 1. Admitted on a voluntary basis 2. Permitted to provide express and informed consent to his/her own treatment 3. Allowed to transfer from involuntary to voluntary status 4. Prior to permitting a person to consent to his or her own treatment after having been previously found incompetent to consent to treatment. History of Present Illness Capacity: Has Capacity HPI This is a 40-year-old white to single male who was transferred from the medical floor after he was medically stable and cleared for treatment of his depression. Patient has been diagnosed with bipolar affective disorder depressed and had impulsively overdosed because he was feeling overwhelmed and under stress. Patient was thinking of moving to [place] wants to sell his house feels lonely and he impulsively took aspirins and was hospitalized on the medical floor. Please see Dr. García's evaluation for detail. Once he was medically stable he was admitted to the psychiatric unit for further care. Patient claimed that he is allergic to Seroquel and would not want to take that. He was taking Depakote Effexor and BuSpar but he complains about not being able to sleep. We will add Remeron and see what happens. Patient denied any auditory or visual hallucinations. He denies any suicidal ideation intentions or plan. Denied any paranoid delusion at this time. No behavior or management problem reported. He is cooperative and willing to sign voluntary and participate in all the therapeutic activity Review of Systems Except as stated in HPI: all other systems reviewed are Neg Psychiatric: COMPLAINS OF: Mood changes, Depression Past Psych History Psychological trauma history Patient denied any physical verbal or sexual abuse growing up Violence risk - others (6 mos) Patient denied Violence risk - self (6 mos) Patient does admit to passive thoughts of suicide and attempted overdose for the first time Substance Abuse History Drugs/Alcohol past 12 months Patient admitted to occasionally drinking alcohol once or twice a week but not drunk Past Family Social History Coded Allergies: Seroquel (Unverified Allergy, Severe, anaphalaxis, 08/30/13) Reported Medications Omeprazole 20 mg 20 Mg Tab20 Mg PO BID 08/14/10 Discontinued Reported Medications Quetiapine Fumarate (Seroquel)300 Mg [id number] Mg PO HS 08/14/10 Prochlorperazine Maleate 10 Mg Tab10 Mg PO NEEDED 08/14/10 Adelino Carbonate (Lithobid)300 Mg [id number] Mg PO HS 08/14/10 Adelino Carbonate (Lithobid)300 Mg [id number] Mg PO DAILY 08/14/10 Aspirin (Aspirin 325 mg)325 Mg [id number] Mg PO DAILY 08/14/10 Current Medications Medications (Trade) Dose Ordered Sig/Kris Route Start Time Stop Time Status Last Admin (Benadryl) 50 mg HS PRN PO 04/13/16 14:00 (Tylenol) 650 mg Q4H PRN PO 04/13/16 13:00 (Milk Of Magnesia Liq) 30 ml DAILY PRN PO 04/13/16 13:00 (Mag-Al Plus Susp Liq) 30 ml Q6H PRN PO 04/13/16 13:00 (Atarax) 50 mg Q6H PRN PO 04/13/16 13:00 Family History Family history is positive for alcoholism father and grandfather. Social History Patient was born in [place]. He is the oldest in the family with one younger sister. He was closer to his father. Parents were when he was young. His childhood was described as happy. He denied any physical verbal or sexual abuse growing up. He finished high school and then he joined the [employer] for 4 years and received honorable discharge and became 100% service-connected because of the bipolar affective disorder depression. Then he went back to the college for 2 years. Patient claimed that he used to drink excessively and got into some legal trouble and at the present time he does not have any legal driver guide license because of DUI. He worked in the [employer] and [employer]. Patient has never been he does not have any children. He has been hospitalized several times and has attempted first time overdose Patient's Strengths (min. 2) Patient is cooperative willing to sign voluntary and take the medication Physical Exam Please see the LMD's note patient denied any medical complaints. He was medically cleared to transfer to the psychiatric unit. Vital signs are stable Mental Status Examination This is a 40-year-old white male who looks about the same as his stated age was alert oriented 3 cooperative casually dressed. His speech was slow without any evidence of loose associations or flights of ideas or pressure speech his mood was described as feeling depressed and wants to move to [facility] and sell his home.. He feels somewhat under stress. But willing to take the medication and follow-up as an outpatient. He denies any active suicidal ideation intentions or plan. Denied any active auditory or visual hallucinations. Denied any paranoid delusion. He seems to be of average intelligence with poor recent memory his insight is fair and his judgment seems to be okay on hypothetical situation. His gait is normal his language is normal his fund of knowledge is average Previous Suicide Attempts: Yes Previous Homicide Attempts: No Assessment & Plan Problem List: (1) Bipolar disorder ICD Code: F31.9 Assessment & Plan Estimated LOS:5 days. This is a 40-year-old white single male 100% service connected with a diagnosis of bipolar affective disorder depressed was admitted following an overdose on aspirin after he was medically stable. Willing to sign voluntary and take the medication and outpatient follow-up upon discharge.. Admits to observe evaluate and treat. Patient will participate in all the therapeutic activity on the floor. Vital signs every shift. We will resume his Depakote Effexor BuSpar and Remeron. Patient is willing to sign voluntary. senior manager creative services to assist in aftercare and discharge planning. Side effect another alternative treatment were explained to the patient Request HC Surrog/Guard Advoc?: No Problem Qualifiers (1) Bipolar disorder: Idris Sauceda MD Apr 13, 2016 13:54
[2016-04-13] MEDS: VENLAFAXINE HCL XR 75 MG CAP PO SCH ×2 (14:00→20:49)
[2016-04-13] MEDS ORDERED: busPIRone HCL 10 MG TAB PO PRN (14:00)
[2016-04-13 14:11] VITALS: BP 124/78; PULSE 64; RESP 16; TEMP 98; O2SAT 96
[2016-04-13 18:30] VITALS: BP 123/78; PULSE 57; RESP 17; TEMP 97.9; O2SAT 98
[2016-04-13] MEDS: DIVALPROEX DR 500 MG TABEC PO SCH (20:49)
[2016-04-13] MEDS: MIRTAZAPINE 15 MG TAB PO SCH (20:49)
[2016-04-13] MEDS: diphenhydrAMINE HCL 50 MG CAP PO PRN (21:23)
[2016-04-14 06:07] VITALS: BP 111/70; PULSE 53; RESP 16; TEMP 98.3; O2SAT 96
[2016-04-14] MEDS: VENLAFAXINE HCL XR 75 MG CAP PO SCH ×2 (08:37→21:00)
[2016-04-14] MEDS: DIVALPROEX DR 500 MG TABEC PO SCH ×2 (08:37→21:00)
--- NOTE | 2016-04-14 11:52 | HHI.PYPN ---
Subjective Remarks Patient was seen and discussed with the staff command and control officer. Patient reported that he has been feeling better than yesterday. He slept okay. Denied any auditory or visual hallucinations at this time. Denied any suicidal ideation intentions or plan. No behavior or management problem reported. No side effects were complained from the medication. Encouraged to participate in all the therapeutic activity. Continue with the same treatment Review of Systems Except as stated in HPI: all other systems reviewed are Neg Psychiatric: COMPLAINS OF: Mood changes, Depression Objective Alert: Yes [place]: Person, Place, Date, Situation Mood: Depressed Affect: Restricted Memory Intact: Comment (not formally tested but seems fairly intact) Hallucinations: Other Delusions: No Delusion Type: Other (no obvious delusional belief noted at this time) Suicidal: Ideation (patient denied any suicidal ideation intentions or plan) Homicidal: Ideation (eyes any homicidal ideation or plan) Insight/Judgement Fair Remarks Gait normal attention and concentration improving. Fund of knowledge average language normal Vitals/IOs Vital Signs Date Time Temp Pulse Resp B/P Pulse Ox O2 Delivery O2 Flow Rate FiO2 04/14/16 06:07 98.3 53 16 111/70 96 Assessment & Plan Problem List: (1) Bipolar disorder ICD Code: F31.9 Assessment & Plan Estimated LOS: days Justification for Cont. Inpt. Monitoring other medication to help lift her depression and stabilize her mood Request HC Surrog/Guard Advoc?: No Problem Qualifiers (1) Bipolar disorder: Idris Sauceda MD Apr 14, 2016 11:52
[2016-04-14 18:51] VITALS: BP 123/73; PULSE 77; RESP 16; TEMP 98.3; O2SAT 97
[2016-04-14] MEDS: MIRTAZAPINE 15 MG TAB PO SCH (21:00)
[2016-04-15 05:00] VITALS: BP_SYST 112; BP_SYST 158; BP_DIAS 74; BP_DIAS 79; PULSE 61; PULSE 65; RESP 18; TEMP 98.3; TEMP 98.5; O2SAT 97; O2SAT 98
[2016-04-15] MEDS: VENLAFAXINE HCL XR 75 MG CAP PO SCH ×2 (09:34→21:27)
[2016-04-15] MEDS: DIVALPROEX DR 500 MG TABEC PO SCH ×2 (09:34→21:27)
--- NOTE | 2016-04-15 10:40 | HHI.PYPN ---
Subjective Remarks Patient was seen and discussed with the staffing branch manager. Patient reported that he has been feeling better he still wants to go to [place] feels hopeful about the future. [facility] Denied any suicidal ideation intentions or plan. No behavior or management problem reported. Patient is compliant in taking medication. Continue with the same treatment delinquency prevention social worker to assist Review of Systems Except as stated in HPI: all other systems reviewed are Neg Psychiatric: COMPLAINS OF: Mood changes, Depression Objective Alert: Yes [place]: Person, Place, Date, Situation Mood: Depressed Affect: Restricted Memory Intact: Comment (not formally tested but seems fairly intact) Hallucinations: Other (denied any auditory or visual hallucinations) Delusions: No Delusion Type: Other (no obvious delusional belief noted at this time) Suicidal: Ideation (patient denied any suicidal ideation intentions or plan) Homicidal: Ideation (eyes any homicidal ideation or plan) Insight/Judgement Fair Vitals/IOs Vital Signs Date Time Temp Pulse Resp B/P Pulse Ox O2 Delivery O2 Flow Rate FiO2 04/15/16 05:00 98.5 61 18 112/79 97 Assessment & Plan Problem List: (1) Bipolar disorder ICD Code: F31.9 Assessment & Plan Estimated LOS: days Justification for Cont. Inpt. Monitoring of the medication Request HC Surrog/Guard Advoc?: No Problem Qualifiers (1) Bipolar disorder: Idris Sauceda MD Apr 15, 2016 10:40
[2016-04-15 18:00] VITALS: BP 125/81; PULSE 53; RESP 53; TEMP 97.2; O2SAT 100
[2016-04-15] MEDS: MIRTAZAPINE 15 MG TAB PO SCH (21:27)
[2016-04-15] MEDS: diphenhydrAMINE HCL 50 MG CAP PO PRN (21:33)
[2016-04-16 05:19] VITALS: BP 118/76; PULSE 63; RESP 16; TEMP 98.1; O2SAT 99
[2016-04-16] MEDS: DIVALPROEX DR 500 MG TABEC PO SCH (09:08)
[2016-04-16] MEDS: VENLAFAXINE HCL XR 75 MG CAP PO SCH (09:08)
--- NOTE | 2016-04-16 10:47 | HHI.DS ---
Psychiatry Discharge Summary Inpatient Psychiatric care?: Yes Advance Directive: No Reason Not Provided: DID NOT FEEL HE NEEDED IT Mental Health AdvanceDirective: No Health Care Proxy: No Admission Admission Date Apr 13, 2016 at 10:00 Admission Diagnosis: (1) Bipolar disorder, current episode depressed, moderate ICD Code: F31.32 GAF Score: 45 Brief History This is a 40-year-old white to single male who was transferred from the medical floor after he was medically stable and cleared for treatment of his depression. Patient has been diagnosed with bipolar affective disorder depressed and had impulsively overdosed because he was feeling overwhelmed and under stress. Patient was thinking of moving to [place] wants to sell his house feels lonely and he impulsively took aspirins and was hospitalized on the medical floor. Please see Dr. García's evaluation for detail. Once he was medically stable he was admitted to the psychiatric unit for further care. Patient claimed that he is allergic to Seroquel and would not want to take that. He was taking Depakote Effexor and BuSpar but he complains about not being able to sleep. We will add Remeron and see what happens. Patient denied any auditory or visual hallucinations. He denies any suicidal ideation intentions or plan. Denied any paranoid delusion at this time. No behavior or management problem reported. He is cooperative and willing to sign voluntary and participate in all the therapeutic activity Tobacco Use In Past 30 Days: 5 or More Cigarettes/Day Alcohol Use: 2-4 Times Per Month Hospital Course Patient was started was supportive treatment. He persevered in all the therapeutic activity on the floor. His medication was adjusted. He started to feel better. He still wanted to go to [place] and [facility]. Denied any suicidal ideation intentions of plan. Denied any auditory or visual hallucinations. No behavior or management problem reported. At that point arrangements were made for him to be discharged Results Blood Pressure 118 / 76 Vital Signs Date Time Temp Pulse Resp B/P Pulse Ox O2 Delivery O2 Flow Rate FiO2 04/16/16 05:19 98.1 63 16 118/76 99 Please see EMR Summary of Major Lab Results Nothing significant Summary of Procedures None Imaging None Pending results at discharge: No Medications # of Antipsychotic meds at D/C: 1 Appropriate >1 Antipsych meds?: 2 Approp Antipsych med options 1 - Minimum of three failed multiple trials of monotherapy. Discharge Discharge Date: Apr 16, 2016 Discharge Diagnosis: (1) Bipolar disorder, current episode depressed, moderate Diagnosis: [place] ICD Code: F31.32 Mental Status Exam at Disch Patient was alert reported 3 cooperative casually dressed. His speech was clear spontaneous without any evidence of loose associations. His mood was described as feeling fine and hopeful. Denied any suicidal ideation intentions or plan. Denied any auditory or visual hallucinations. No behavior or management problem reported. Willing to take the medication and follow-up as an outpatient Pt Condition on Discharge: Stable Discharge Disposition: Discharge Home Discharge Instructions Diet Instructions: As Tolerated, No Restrictions Activities you can perform: Regular-No Restrictions Scheduled Appointment: MD Appointment Date: Apr 16, 2016 Appointment Time: 2:00pm Discharge Time <= 30 minutes Discharge/Advance Care Plan Health Problems: (1) Bipolar disorder Goals to promote your health * To prevent worsening of your condition and complications * To maintain your health at the optimal level Directions to meet your goals Take your medications as prescribed Follow your dietary instruction Follow activity as directed Keep your appointments as scheduled Take your immunizations and boosters as scheduled If your symptoms worsen call your PCP, if no PCP go to Urgent Care Center or Emergency Room For 11/10 questions related to your inpatient stay or results of tests pending at discharge, please contact Dr. Idris Sauceda at Smoking is Dangerous to Your Health. Avoid second hand smoking Idris Sauceda MD Apr 16, 2016 10:47
[2016-04-16] MEDS ORDERED: DIVA500T PO (10:48)
[2016-04-16] MEDS ORDERED: MIRTA15 PO (10:48)
[2016-04-16] MEDS ORDERED: VENL75XR PO (10:48)
== END 2016-04-16 14:05 | disposition home or self-care (01) | DRG 885 ==
LOC: H260 10:00
PROVIDERS: ADMIT Psychiatry & Neurology Psychiatry; ATTEND Psychiatry & Neurology Psychiatry
DX: F31.32 Bipolar disorder, current episode depressed, moderate (principal); T50.901A Poisoning by unspecified drugs, medicaments and biological substances, accidental (unintentional), initial encounter; Y92.9 Unspecified place or not applicable
CPT/HCPCS: Q0163